=== PATIENT | female | born 1985 | race Caucasian/White ===

== ENCOUNTER 2016-06-19 13:20 | Emergency (ER) | payer MEDICAID ==
[~2016-06-19] VITALS: Ht 160 cm; Wt 89.8 kg
[2016-06-19 13:39] VITALS: BP 161/108
--- NOTE | 2016-06-19 14:30 | NUR ---
Patient ambulated to bed 01.
--- NOTE | 2016-06-19 14:33 | NUR ---
Dr. Crystal evaluating patient at bedside.
--- NOTE | 2016-06-19 14:35 | NUR ---
31/F BIB FAMILY C/O CONGESTION X3 DAYS. PT DENIES ANY OTHER MEDICAL HX. LUNGS CLR BILAT. REDNESS NOTED TO BACK OF THROAT WITH CONGESTION NOTED.
[2016-06-19] MEDS ORDERED: DEXAMETHASONE 4 MG/ML VIAL PO ONE (14:50)
[2016-06-19] MEDS ORDERED: KETOROLAC 30 MG/ML VIAL IM ONE (14:50)
[2016-06-19 16:30] VITALS: BP 150/91
== END 2016-06-19 16:30 | disposition home or self-care (01) ==
LOC: MED 13:32
DX: J01.90 Acute sinusitis, unspecified (principal); J06.9 Acute upper respiratory infection, unspecified
CPT/HCPCS: 96372; 99283; J1100; J1885